=== PATIENT | female | born 1965 | race Caucasian/White ===

== ENCOUNTER 2017-01-06 21:40 | Emergency (ER) | payer OTHER ==
[~2017-01-06] VITALS: Ht 167.6 cm; Wt 90.7 kg
--- NOTE | ~2017-01-06 | EKG ---
[place] [address] [facility] [place] [address] ELECTROCARDIOGRAM REPORT Name: ABRAHAM LARIOS Room #: DEP Vivek#: [id number] Admission: 01/06/17 Attend Phys: Discharge: 01/06/17 Date of : 65 Report #: [id number] THIS REPORT FOR: //name// [facility] ED Test Date: 2017-01-06 Test Time: 21:48:30 Pat Name: ABRAHAM LARIOS Department: Room: Gender: F Real Estate Assessor: [id number] : 1965 Requested By: Edwina Shelby Order Number: [id number] MD: Fabrizio Kan Measurements Intervals [place] Rate: 68 P: 67 MA: 134 QRS: 41 QRSD: 82 T: 40 QT: 402 QTc: 428 Interpretive Statements Sinus rhythm No significant abnormality No previous ECG available for comparison Electronically Signed On 01-07-2017 17:53:01 CDT by Fabrizio Kan [email or web address] <ELECTRONICALLY SIGNED> By: Fabrizio Kan MD, [facility] 01/07/17 1753 [id number] [id number] Fabrizio Kan MD, FACC /EPI
[2017-01-06 21:59] LABS: BASOPHILS 0.7 % (0.0-2.0); EOSINOPHILS 3.8 % (0.0-3.0); HEMATOCRIT 40.8 % (37.0-47.0); LYMPHOCYTES 39.9 % (24.0-44.0); MCH 30.3 pg (26.0-34.0); MCHC 34.2 g/dL (28.0-37.0); MCV 88.4 fL (80.0-100.0); MONOCYTES 6.1 % (1.0-8.0); PLATELET COUNT 236 thou/uL (150-400); POLYS 49.5 % (36.0-66.0); RBC 4.61 mil/uL (4.20-5.00); RDW 12.7 % (10.5-14.5); WBC 10.1 thou/uL (4.0-11.0)
[2017-01-06 22:01] LABS: MANUAL DIFF NO
[2017-01-06 22:16] LABS: ANION GAP 9 mmol/L (7-16); BUN 7 mg/dL (7-18); CALCIUM 8.9 mg/dL (8.5-10.1); CHLORIDE 106 mmol/L (98-107); CO2 26 mmol/L (21-32); CREATININE 0.9 mg/dL (0.6-1.0); GLUCOSE 106 mg/dL (74-106); SODIUM 141 mmol/L (136-145); TROPONIN-I < 0.04 ng/mL (<0.04-0.07)
[2017-01-06 22:24] LABS: ALBUMIN 3.5 g/dL (3.4-5.0); ALKALINE PHOSPHATASE 133 U/L (46-116); DIRECT BILIRUBIN < 0.1 mg/dL (<0.1-0.3); SGOT 27 U/L (15-37); SGPT 40 U/L (30-65); TOTAL BILIRUBIN 0.2 mg/dL (<0.1-1.0); TOTAL PROTEIN 6.6 g/dL (6.4-8.2)
[2017-01-06 23:57] VITALS: BP 133/84
== END 2017-01-06 23:59 | disposition home or self-care (01) ==
LOC: ER 21:40
PROVIDERS: Emergency Medicine
DX: K80.50 Calculus of bile duct without cholangitis or cholecystitis without obstruction (principal); K21.9 Gastro-esophageal reflux disease without esophagitis; F17.210 Nicotine dependence, cigarettes, uncomplicated; F10.99 Alcohol use, unspecified with unspecified alcohol-induced disorder; Z98.890 Other specified postprocedural states; Z88.5 Allergy status to narcotic agent

== ENCOUNTER → 2017-01-10 | Outpatient (CLI) | payer OTHER | LOC: ULTRA 07:29 | DX: K80.80 Other cholelithiasis without obstruction (principal) ==

== ENCOUNTER 2017-01-17 05:26 | Day surgery (SDC) | payer OTHER ==
[~2017-01-17] VITALS: Ht 167.6 cm; Wt 97.5 kg
--- NOTE | ~2017-01-17 | S ---
[facility] [place] [address] SURGICAL PATH RPT PROCEDURE Name: ABRAHAM CHAVEZ Room #: DEP [facility] M.R.#: [id number] Admission: 01/17/17 Date of : 65 Discharge: 01/17/17 Report #: [id number] Path Case #: [id number] PATHOLOGY REPORT COLLECTION DATE: 01/17/2017 RECEIVED DATE: 01/17/2017 SUBMITTING PHYS: Dr. Bob Jauregui, OTHER PHYS: Dr. Julio C Jackson SPECIMEN(S) RECEIVED: A.Gallbladder * * * * * * * * * * * * FINAL DIAGNOSIS: "Gallbladder", cholecystectomy: - Chronic cholecystitis with cholesterolosis. - Cholelithiasis. (CLW:pit; 01/21/2017) PATHOLOGIST: Rachelle Vickers M.D. REPORT ELECTRONICALLY SIGNED BY: Rachelle Vickers M.D. DATE/TIME: 01/21/2017 14:22 * * * * * * * * * * * * GROSS PATHOLOGY: Received in formalin labeled "Abraham Chavez gallbladder," is a 7.8 x 2.0 x 2.2 cm, previously opened gallbladder with smooth to shaggy, pale gonzalez to pale green and partially fibroadipose-covered serosal surfaces. Opening the gallbladder reveals velvety, light green mucosa displaying moderate, diffuse cholesterolosis and an average wall thickness of 0.1 cm. Calculi are present that are granular and pale yellow in appearance, ranging in size from 1.7 to 1.8 cm in maximum dimension. No masses are noted grossly. Sewer Pipe Sorter sections from the body and fundus are submitted along with the proximal margin in cassette A1. (DAC; 01/20/2017) CLINICAL HISTORY: Cholelithiasis INITIAL CPT CODE(S): A; 04492 [facility] [address] [place] [address] SURGICAL PATH RPT PROCEDURE Name: ABRAHAM CHAVEZ Room #: DEP [facility] Narendra.Jyotsna.#: [id number] Admission: 01/17/17 Date of : 65 Discharge: 01/17/17 Report #: [id number] Path Case #: [id number] [address] [facility] , [place] [address] Technical services performed by [facility] at [address] [place] [address], [facility] [address] [address]. [facility] [address] [place] [address] PHONE: [phone] DIRECTOR: Patel Marrero M.D. * * * END OF REPORT * * *
[~2017-01-17 05:26] MED LIST: DIFLUCAN150 MG PO; LANSOPRAZOLE30 MG PO; SYMBICORT160 MCG/4. INH; SYNTHROID112 MCG PO; VENTOLIN HFA 1818 GM INH; ZOLOFT50 MG PO
[2017-01-17 07:20] VITALS: BP 106/70
[2017-01-17] MEDS ORDERED: FLONASE 0.05%50 MCG NASAL (07:26)
[2017-01-17] MEDS ORDERED: HYDROCODONE-AP1 EAC6 PO (08:46)
[2017-01-17] MEDS ORDERED: MIRALAX17 GM PO (08:46)
[2017-01-17] MEDS ORDERED: ZOFRAN ODT4 MG DISSOLVE (08:46)
[2017-01-17] MEDS ORDERED: TRAMADOL 50 MG50 MG PO (09:33)
[2017-01-17] MEDS ORDERED: APAP650 PO (09:33)
[2017-01-17 10:14] VITALS: BP 106/70
[2017-01-17 11:44] LABS: HIV-1 P24 AG Nonreactive (Nonreactive)
[2017-01-17 23:08] LABS: HBsAG-EMPLOYEE EXPOSURE Negative (Negative); HCV AB-EMPLOYEE EXPOSURE <0.1 (0.0-0.9)
== END 2017-01-17 11:12 | disposition home or self-care (01) ==
LOC: OR 05:26 → TBA 05:27 → OR 11:12
PROVIDERS: Surgery
DX: K80.20 Calculus of gallbladder without cholecystitis without obstruction (principal); K21.9 Gastro-esophageal reflux disease without esophagitis; J45.909 Unspecified asthma, uncomplicated; F32.89 Other specified depressive episodes; F41.8 Other specified anxiety disorders; F17.210 Nicotine dependence, cigarettes, uncomplicated; Z88.8 Allergy status to other drugs, medicaments and biological substances; Z98.890 Other specified postprocedural states
CPT/HCPCS: 50010; 50101; 50249; 50411; 50555; 50558; 51489; 51975; 52265; 53307; 53310; 54022; 54118; 55245; 55317; 56462; 56525; 56526; 62110; 62900; 70005